=== PATIENT | male | born 1995 | race Caucasian/White ===

== ENCOUNTER 2017-02-26 06:01 | Day surgery (SDC) | payer MEDICAID ==
[~2017-02-26] VITALS: Ht 172.7 cm; Wt 56.2 kg
[2017-02-26] MEDS ORDERED: MIDAZOLAM 2 MG/2 ML VIAL ONE (07:39)
[2017-02-26] MEDS ORDERED: fentaNYL 0.05 MG/ML VIAL ONE ×2 (07:39)
[2017-02-26] MEDS ORDERED: diphenhydrAMINE 50 MG/ML VIAL ONE (07:39)
[2017-02-26] MEDS ORDERED: MIDAZOLAM 2 MG/2 ML VIAL IVP ONE (08:50)
[2017-02-26] MEDS ORDERED: fentaNYL 0.05 MG/ML VIAL IVP ONE (08:50)
== END 2017-02-26 09:35 | disposition home or self-care (01) ==
LOC: MDS 06:01 → MMU 06:03 → MDS 09:35
PROVIDERS: ATTEND Internal Medicine Gastroenterology
DX: R19.7 Diarrhea, unspecified (principal); E66.9 Obesity, unspecified; Z98.890 Other specified postprocedural states; F17.210 Nicotine dependence, cigarettes, uncomplicated; Z79.899 Other long term (current) drug therapy
CPT/HCPCS: 45380; J2250; J3010; J7030; J1200